=== PATIENT | male | born 1945 | race Caucasian/White ===

== ENCOUNTER 2020-11-09 16:13 | Observation (INO) ==
[2020-11-09] MEDS ORDERED: DilTIAZem 50 MG/50 ML IV.SOLN IVC SCH (16:30)
[2020-11-09 16:48] LABS: Basophils # 0.1 K/mcL (0.0-0.2); Basophils % 0.3 %; Hematocrit 36.6 % (37.5-50.1); Hemoglobin 11.7 g/dL (12.9-16.9); Immature Granulocytes % 0.7 % (0-4); Lymphocytes # 0.6 K/mcL (0.6-4.6); Lymphocytes % 3.8 %; Mean Corpuscular Volume 96.8 fL (83.0-100.0); Mean Platelet Volume 10.8 fL (9.4-12.4); Monocytes # 1.3 K/mcL (0.0-1.3); Monocytes % 8.4 %; Neutrophils # 13.5 K/mcL (1.6-8.9); Platelet Count 208 K/mcL (140-400); Red Blood Count 3.78 M/mcL (4.19-5.50); Red Cell Distribution Width 13.3 % (11.5-14.5); Segmented Neutrophils % 86.8 %; White Blood Count 15.6 K/mcL (4.3-11.1)
[2020-11-09] MEDS ORDERED: 0.9 % Sodium Chloride 1,000 ML IVC ONE (17:01)
[2020-11-09 17:11] LABS: Calcium 9.7 mg/dL (8.6-10.3); Magnesium 2.1 mg/dL (1.6-2.6); Potassium 5.1 mEq/L (3.5-5.1)
[2020-11-09] MEDS ORDERED: Furosemide 40 MG/4 ML VIAL IVP ONE (17:20)
[2020-11-09] MEDS ORDERED: Piperacillin/Tazobactam 3.375 GM in 0.9 % Sodium Chloride Mini Bag 100 ML IVPB ONE (17:30)
[2020-11-09 17:41] LABS: Adenovirus Not Detected (Not Detect); Bordetella Pertussis Not Detected (Not Detect); Chlamydophila pneumoniae Not Detected (Not Detect); Coronavirus 229E Not Detected (Not Detect); Coronavirus HKU1 Not Detected (Not Detect); Coronavirus NL63 Not Detected (Not Detect); Coronavirus OC43 Not Detected (Not Detect); Human Metapneumovirus Not Detected (Not Detect); Human Rhinovirus/Enterovirus Not Detected (Not Detect); Influenza A Subtype 2009 H1 Not Detected (Not Detect); Influenza B Not Detected (Not Detect); Mycoplasma pneumoniae Not Detected (Not Detect); Parainfluenza Virus 1 Not Detected (Not Detect); Parainfluenza Virus 2 Not Detected (Not Detect); Parainfluenza Virus 3 Not Detected (Not Detect); Parainfluenza Virus 4 Not Detected (Not Detect); Respiratory Syncytial Virus Not Detected (Not Detect); SARS-CoV-2 Not Detected (Not Detect)
[2020-11-09] MEDS ORDERED: *HR* Heparin 5,000 UNIT/ML VIAL IVP ONE (19:10)
[2020-11-09] MEDS ORDERED: *HR* Heparin 5,000 UNIT/ML VIAL IVP PRN ×2 (19:10)
[2020-11-09] MEDS ORDERED: Heparin 25,000UNIT/250ML 1/2NS 25,000 UNIT/250 ML IV.SOLN IVC SCH (19:15)
[2020-11-09] MEDS ORDERED: Acetaminophen 325 MG TABLET PO PRN (19:32)
[2020-11-09] MEDS ORDERED: Ondansetron ODT 4 MG TAB.RAPDIS SL PRN (19:32)
[2020-11-09] MEDS ORDERED: Perflutren Lipid Microsphere 1.3 ML in 0.9 % Sodium Chloride 8.7 ML IVP PRN (19:39)
[2020-11-09] MEDS ORDERED: INSULIN GLARGINE 28 UNIT SQ SCH (19:45)
[2020-11-09] MEDS ORDERED: D5% in Water 1,000 ML IVC PRN (19:46)
[2020-11-09] MEDS ORDERED: *HR* Dextrose 50 % in Water (Vial) 50 ML VIAL IVP PRN (19:46)
[2020-11-09] MEDS ORDERED: Dextrose Gel 15 GM/37.5 ML TUBE PO PRN ×2 (19:46)
[2020-11-09] MEDS ORDERED: Insulin DETEMIR 100 UNIT/ML X5UNITS SQ ONE (19:46)
[2020-11-09] MEDS ORDERED: cefTRIAXone 2,000 MG in Water for inj. (sterile) 20 ML IVP SCH (20:00)
[2020-11-09] MEDS ORDERED: Azithromycin 500 MG in 0.9 % Sodium Chloride 250 ML IVPB SCH (20:00)
[2020-11-09] MEDS ORDERED: Aspirin 325 MG TABLET PO ONE (20:58)
[2020-11-09] MEDS ORDERED: Insulin LISPRO 300 UNITS/3 ML VIAL SQ SCH (21:00)
[2020-11-09 21:42] LABS: Hematocrit 33.6 % (37.5-50.1); Hemoglobin 10.9 g/dL (12.9-16.9); Mean Corpuscular HGB Conc 32.4 g/dL (31.6-35.5); Mean Corpuscular Hemoglobin 31.9 pg (28.0-33.3); Mean Corpuscular Volume 98.2 fL (83.0-100.0); Platelet Count 191 K/mcL (140-400); Red Blood Count 3.42 M/mcL (4.19-5.50); Red Cell Distribution Width 13.4 % (11.5-14.5); White Blood Count 12.7 K/mcL (4.3-11.1)
[2020-11-09 21:50] LABS: INR 1.3
[2020-11-09 21:52] LABS: Heparin anti-factor XA UFH 1.05 IU/mL (0.30-0.70)
[2020-11-09 22:02] LABS: Albumin 3.7 g/dL (3.5-5.7); Albumin/Globulin Ratio 1.2 (1.1-2.2); Bilirubin,Direct 0.4 mg/dL (0.0-0.2); Bilirubin,Indirect 0.5 mg/dL (0.0-1.0); Bilirubin,Total 0.9 mg/dL (0.3-1.0); Total Protein 6.7 g/dL (6.4-8.9)
[2020-11-09] MEDS ORDERED: carvediloL 25 MG TABLET PO SCH (22:15)
[2020-11-10 02:44] LABS: Hematocrit 35.3 % (37.5-50.1); Hemoglobin 11.2 g/dL (12.9-16.9); Mean Corpuscular HGB Conc 31.7 g/dL (31.6-35.5); Mean Corpuscular Hemoglobin 30.8 pg (28.0-33.3); Platelet Count 202 K/mcL (140-400); Red Blood Count 3.64 M/mcL (4.19-5.50); Red Cell Distribution Width 13.5 % (11.5-14.5); White Blood Count 11.9 K/mcL (4.3-11.1)
[2020-11-10 02:56] LABS: Calcium 9.3 mg/dL (8.6-10.3); Chol/HDL Ratio 4.3 (0-4.9); Potassium 5.6 mEq/L (3.5-5.1)
[2020-11-10 03:34] VITALS: BP 78/50
[2020-11-10] MEDS ORDERED: Perflutren Lipid Microsphere 1.3 ML in 0.9 % Sodium Chloride 8.7 ML IVP PRN (03:36)
[2020-11-10] MEDS ORDERED: Norepinephrine 4 MG/254 ML IV.SOLN IVC SCH (03:45)
[2020-11-10] MEDS ORDERED: 0.9 % Sodium Chloride 1,000 ML ONE (04:36)
[2020-11-10 05:09] LABS: ABG Base Excess -13 mEq/L (-2 to 3); ABG HCO3 16 mEq/L (21-27); ABG Oxygen Saturation 78 % (95-98); ABG PCO2 47 mmHg (35-45); ABG PH 7.14 pH Units (7.32-7.45); ABG PO2 55 mmHg (85-104); ABG TCO2 17 mEq/L (20-26)
[2020-11-10] MEDS ORDERED: *HR* Vasopressin 20 UNIT/ML VIAL ONE (05:11)
[2020-11-10] MEDS ORDERED: D5% in Water 100 ML ONE (05:12)
[2020-11-10] MEDS ORDERED: *HR* Amiodarone Premix 360 MG/200 ML BAG IVC ONE (05:24)
[2020-11-10] MEDS ORDERED: *HR* EPINEPHrine 1 MG/10 ML SYRINGE IVP ONE ×2 (05:24)
[2020-11-10] MEDS ORDERED: *HR* Amiodarone 150 MG/3 ML VIAL IVPB ONE (05:24)
[2020-11-10] MEDS ORDERED: *HR* Atropine Sulfate 1 MG/10 ML SYRINGE IV ONE ×2 (05:24)
[2020-11-10] MEDS ORDERED: Insulin LISPRO 300 UNITS/3 ML VIAL SQ SCH (07:30)
[2020-11-10] MEDS ORDERED: Aspirin 81 MG TAB.CHEW PO SCH (09:00)
== END 2020-11-10 05:25 | disposition expired ==
LOC: EMEROOARM 16:13 → 2NNU 16:13 → ICNU 11-10 03:35
PROVIDERS: ADMIT Family Medicine; ATTEND Family Medicine